=== PATIENT | male | born 1955 | race Caucasian/White ===

== ENCOUNTER → 2020-07-25 | Outpatient (CLI) | payer BC | END | disposition home or self-care (01) | LOC: RAH 08:48 | PROVIDERS: ATTEND Internal Medicine | DX: R06.02 Shortness of breath (principal) | CPT/HCPCS: 93306; 93356 ==

== ENCOUNTER 2020-09-12 07:54 | Day surgery (SDC) | payer BC ==
[2020-09-10 09:42] LABS: BASOPHILS % (AUTO) 0.3 % (0.0-5.0); EOSINOPHILS % (AUTO) 4.4 % (0.0-8.0); HEMATOCRIT 44.9 % (42-54); MEAN CORPUSCULAR HEMOGLOBIN 31.3 pg (27.0-33.0); MEAN CORPUSCULAR HGB CONC 33.9 g/dL (32.0-36.0); MEAN CORPUSCULAR VOLUME 92.6 fL (79-99); MONOCYTES % (AUTO) 10.3 % (3.0-13.0); NEUTROPHILS % (AUTO) 54.1 % (40.0-77.0); PLATELET COUNT (AUTO) 330 K/uL (130-400); RED BLOOD CELL COUNT(AUTO) 4.85 MIL/uL (4.50-6.20); RED CELL DISTRIBUTION WIDTH 13.4 % (11.0-15.5); WHITE BLOOD COUNT (AUTO) 9.7 K/uL (4.8-10.8)
[2020-09-10 09:45] LABS: APPEARANCE,URINE Clear (CLEAR); BILIRUBIN,URINE Negative (NEGATIVE); COLOR,URINE Yellow (YELLOW); GLUCOSE, URINE (UA) Negative (NEGATIVE); KETONES,URINE Negative (NEGATIVE); LEUKOCYTE ESTERASE ,URINE Negative (NEGATIVE); NITRATE,URINE Negative (NEGATIVE); OCCULT BLOOD,URINE Negative (NEGATIVE); PROTEIN,URINE Negative (NEGATIVE); UROBILINOGEN,URINE 0.2 mg/dL (0.2-1.0)
[2020-09-10 09:53] LABS: CREATININE 1.2 mg/dL (0.5-1.5); INR 0.88 (0.85-1.15); PROTHROMBIN TIME 9.5 SEC (9.6-11.6)
[2020-09-10 09:54] LABS: PARTIAL THROMBOPLASTIN TIME 30.2 SEC (26.3-35.5)
[2020-09-11 15:44] VITALS: BP 121/85
[2020-09-12] VITALS (10 sets, daily range): BP systolic 101–140; BP diastolic 59–83
[~2020-09-12] VITALS: Ht 177.8 cm; Wt 137.3 kg
[2020-09-12] MEDS ORDERED: SODIUM CHLORIDE 0.9% 1000ML 1,000 ML IV ONE (08:47)
[2020-09-12] MEDS ORDERED: TORS10TA18 PO (08:48)
[2020-09-12] MEDS ORDERED: LOSA100T58 PO (08:48)
[2020-09-12] MEDS ORDERED: TEST100V5 IM (08:48)
[2020-09-12] MEDS ORDERED: PANT40TA54 PO (08:48)
[2020-09-12] MEDS ORDERED: MONT10TA96 PO (08:48)
[2020-09-12] MEDS ORDERED: METO-408 PO (08:48)
--- NOTE | 2020-09-12 08:55 | NUR ---
report called dr esquivel and informed him pt has a break out of genital herpes to suprapubic area. md will come and assess
[2020-09-12] MEDS ORDERED: DIAZEPAM 5 MG TABLET ONE (09:23)
[2020-09-12] MEDS ORDERED: DIAZEPAM 5 MG TABLET PO SCH (09:45)
[2020-09-12] MEDS ORDERED: ASPIRIN 81MG TAB.CHEW PO SCH (09:45)
[2020-09-12] MEDS ORDERED: VALACYCLOVIR HCL 500 MG TABLET PO SCH (09:45)
--- NOTE | 2020-09-12 10:04 | NUR ---
cath pt taken [facility] via stretcher by jessica ryan. pt in no distress
[2020-09-12] MEDS ORDERED: SODIUM BICARB 50MEQ 50ML VIAL 50 ML ONE (10:08)
[2020-09-12] MEDS ORDERED: MIDAZOLAM HCL 1 MG/ML 2ML VIAL ONE (10:08)
[2020-09-12] MEDS ORDERED: HEPARIN SODIUM 1000UNIT/ML 10ML VIAL ONE (10:08)
[2020-09-12] MEDS ORDERED: NITROGLYCERIN 2 MG/VIAL VIAL IV ONE (10:08)
[2020-09-12] MEDS ORDERED: IOHEXOL 350 MG/ML 100ML INFUS..BTL IV ONE (10:08)
[2020-09-12] MEDS ORDERED: LIDOCAINE HCL 2% 20ML ONE (10:08)
[2020-09-12] MEDS ORDERED: MEPERIDINE-PF 25 MG/ML SYG ONE (10:08)
[2020-09-12] MEDS ORDERED: IOHEXOL-350 50ML VIAL IV ONE (10:08)
[2020-09-12] MEDS ORDERED: SODIUM CHLORIDE 0.9% 1000ML 1,000 ML IV SCH (11:15)
--- NOTE | 2020-09-12 11:25 | NUR ---
post cath received pt and report from candis ryan. pt in supine position in no distress. pt connected to case monitor. will continue to monitor pt
--- NOTE | 2020-09-12 11:35 | NUR ---
report called dr esquivel and informed pt c/o lower back pain and requesting tylenol es. received new orders.
[2020-09-12] MEDS ORDERED: ACETAMINOPHEN EXTRA STRENGTH 500 MG TABLET ONE (11:36)
[2020-09-12] MEDS ORDERED: ACETAMINOPHEN EXTRA STRENGTH 500 MG TABLET PO SCH (13:00)
[2020-09-12] MEDS ORDERED: ACETAMINOPHEN EXTRA STRENGTH 500 MG TABLET PO PRN (13:00)
--- NOTE | 2020-09-12 13:45 | NUR ---
DISCHARGE INSTRUCTIONS D/C INSTRUCTIONS GIVEN TO EV MONTERO. SHE VOICED UNDERSTANDING
== END 2020-09-12 14:55 | disposition home or self-care (01) ==
LOC: DAH 07:54
PROVIDERS: ATTEND Internal Medicine Cardiovascular Disease
DX: I25.10 Atherosclerotic heart disease of native coronary artery without angina pectoris (principal); I11.0 Hypertensive heart disease with heart failure; I50.9 Heart failure, unspecified; Z96.642 Presence of left artificial hip joint; Z88.0 Allergy status to penicillin; Z79.01 Long term (current) use of anticoagulants; Z79.899 Other long term (current) drug therapy; Z98.890 Other specified postprocedural states
CPT/HCPCS: 36415; 71045; 80048; 81003; 85025; 85610; 85730; 93005; 93458; 96360; 96361; A4215; A4216; A4221; A4222; A4223 ×3; A4606; A4663; C1760; C1894; J1644; J2175; J2250; J3490 ×3; J7030; Q9965; Q9967 ×2; 99156; 99157

== ENCOUNTER → 2020-11-26 | Outpatient (CLI) | payer BC ==
[~2020-11-26] MED LIST: ALBUTEROL SULFATE 0.083% 2.5 MG/3 ML INH IH ONE; LOSA100T58 PO; METO-408 PO; MONT10TA32 PO; PANT40TA54 PO; TEST100V5 IM; TORS10TA18 PO
== END | disposition home or self-care (01) ==
LOC: RESP 12:57
PROVIDERS: ATTEND Internal Medicine Cardiovascular Disease
DX: J98.8 Other specified respiratory disorders (principal)
CPT/HCPCS: 93970; 94060; 94727; 94729

== ENCOUNTER → 2020-12-15 | Outpatient (CLI) | payer BC ==
[~2020-12-15] MED LIST changes: -ALBUTEROL SULFATE 0.083% 2.5 MG/3 ML INH IH ONE; +IOHEXOL 350 MG/ML 100ML INFUS..BTL IV ONE
== END | disposition home or self-care (01) ==
LOC: RAH 07:34
PROVIDERS: ATTEND Internal Medicine Cardiovascular Disease
DX: I26.99 Other pulmonary embolism without acute cor pulmonale (principal); R06.02 Shortness of breath
CPT/HCPCS: 71275; Q9967

== ENCOUNTER → 2021-02-13 | Outpatient (CLI) | payer BC ==
[~2021-02-13] MED LIST changes: -IOHEXOL 350 MG/ML 100ML INFUS..BTL IV ONE
== END | disposition home or self-care (01) ==
LOC: RAH 15:17
PROVIDERS: ATTEND Internal Medicine Pulmonary Disease
DX: R94.2 Abnormal results of pulmonary function studies (principal); R22.2 Localized swelling, mass and lump, trunk; K76.0 Fatty (change of) liver, not elsewhere classified; M40.294 Other kyphosis, thoracic region
CPT/HCPCS: 71250

== ENCOUNTER → 2025-01-24 | Outpatient (CLI) | payer OTHER ==
[~2025-01-24] MED LIST changes: -LOSA100T58 PO; +LOSA100T59 PO; +MONT-39 PO; -MONT10TA32 PO; +TEST100V11 IM; -TEST100V5 IM
--- NOTE | 2025-01-24 16:17 | HMCIMG ---
KNEE/PATELLA 1-2VWS RT HISTORY: Right knee pain COMPARISON: None TECHNIQUE: 2 images of the right knee were obtained. FINDINGS: Calcification is noted at the insertion site of the quadriceps tendon consistent with discopathy. There is no acute displaced fracture or dislocation. Degenerative changes are seen. IMPRESSION: 1. Findings as described above.
== END | disposition home or self-care (01) ==
LOC: RAH 11:55
PROVIDERS: ATTEND Internal Medicine
DX: M17.11 Unilateral primary osteoarthritis, right knee (principal); M65.861 Other synovitis and tenosynovitis, right lower leg; M25.561 Pain in right knee
CPT/HCPCS: 73560

== ENCOUNTER → 2025-04-08 | Outpatient (CLI) | payer OTHER ==
--- NOTE | 2025-04-09 07:47 | HMCIMG ---
EXAM: MR Right Knee without Intravenous Contrast. CLINICAL HISTORY: Unspecified meniscus injury. TECHNIQUE: Magnetic resonance images of the right knee in multiple planes. CONTRAST: None. COMPARISON: radiograph dated 01/24/25. FINDINGS: Menisci: Horizontal tear in the body, anterior and posterior horns of the lateral meniscus. Complex tear in the body of the medial meniscus. Mild medial extrusion of the medial meniscus. Cruciate Ligaments: The anterior and posterior cruciate ligaments are intact. Collateral Ligaments: The medial collateral ligament and the lateral collateral ligament complex are intact. Patellar Retinaculum: The medial and lateral patellar retinaculum are unremarkable. Patellar/Quadriceps Tendon: The patellar tendon and the quadriceps tendon are unremarkable. Bone Marrow Signal: No acute fracture or AVN. Cartilage/Articular Surfaces: Small, cartilage defect noted in the lateral trochlea. Severe thinning of the weightbearing medial femoral condyle cartilage and mild thinning of the weightbearing lateral femoral condyle cartilage. Moderate tricompartmental degenerative changes are evident by reduction of the joint space, cartilage thinning and marginal osteophytes. Mild joint effusion. Darden???s cyst measuring approximately 5 x 3 x 2 cm noted. Extra-articular Tendons: The medial and lateral heads of the gastrocnemius muscle, semimembranosus, semitendinosus, and pes anserinus tendons are unremarkable. IMPRESSION: Redemonstrated moderate tricompartmental degenerative changes. Horizontal tear in the body, anterior and posterior horns of the lateral meniscus. Complex tear in the body of the medial meniscus. Mild medial extrusion of the medial meniscus. Small, cartilage defect in the lateral trochlea. Severe thinning of the weightbearing medial femoral condyle cartilage and mild thinning of the weightbearing lateral femoral condyle cartilage. Mild joint effusion. Darden???s cyst measuring approximately 5 x 3 x 2 cm. /[place]
== END | disposition home or self-care (01) ==
LOC: RAH 07:28
PROVIDERS: ATTEND Family Medicine Sports Medicine
DX: S83.231A Complex tear of medial meniscus, current injury, right knee, initial encounter (principal); S83.281A Other tear of lateral meniscus, current injury, right knee, initial encounter; M17.11 Unilateral primary osteoarthritis, right knee; M71.21 Synovial cyst of popliteal space [Baker], right knee; M25.461 Effusion, right knee; M25.761 Osteophyte, right knee; M25.561 Pain in right knee; X58.XXXA Exposure to other specified factors, initial encounter; Y93.89 Activity, other specified; Y92.89 Other specified places as the place of occurrence of the external cause; Y99.8 Other external cause status
CPT/HCPCS: 73721

== ENCOUNTER 2025-05-19 15:56 | Emergency (ER) | payer OTHER ==
[~2025-05-19] VITALS: Ht 180.3 cm; Wt 122.5 kg
[2025-05-19 17:03] LABS: COVID19 (SARS ANTIGEN RAPID) PRESUMPTIVE NEGATIVE (NEGATIVE); INFLUENZA TYPE A Negative For Type A (NEGATIVE); INFLUENZA TYPE B Negative For Type B (NEGATIVE)
[2025-05-19] MEDS ORDERED: AZIT250T9 PO (17:36)
[2025-05-19] MEDS ORDERED: BROM118S48 PO (17:36)
[2025-05-19] MEDS ORDERED: PRED20TA3 PO (17:36)
--- NOTE | 2025-05-19 17:36 | ERN ---
ED Note History of Present Illness Stated Complaint: CONGESTION Chief Complaint: Congestion Time Seen by MD: 16:03 Dictation: 70-YEAR-OLD MALE PRESENTS TO ER COMPLAINTS OF COUGH CONGESTION TIMES 1 DAY. DENIES SHORTNESS OF BREATH OR CHEST PAIN Allergies: Coded Allergies: Penicillins (Verified Allergy, Unknown, 09/12/20) Home Meds Active Scripts D-Methorphan Hb/P-Epd HCl/Bpm (Bromfed Dm Cough Syrup) 2 Mg-30 Mg-10 Mg/5 Ml Syrup, 10 ML PO Q8H for COUGH AND CONGESTION, #300 ML Prov:MILO AKBAR NP 05/19/25 Azithromycin (Azithromycin) 250 Mg Tablet, 1 TAB PO AD for 5 Days, #6 TAB 0 Refills 2 the first day followed by 1 for days 2-5 Prov:MILO AKBAR NP 05/19/25 Prednisone (Prednisone) 20 Mg Tablet, 2 TAB PO DAILY for 5 Days, #10 TAB 0 Refills TAKE 1 TAB BY MOUTH THREE TIMES PER DAY X3 DAYS, THEN TAKE 1 TAB BY MOUTH TWICE A DAY X2 DAYS, THEN TAKE 1 TAB BY MOUTH ONCE A DAY X1 DAY. Prov:MILO AKBAR NP 05/19/25 Reported Medications Metoprolol Succinate (Metoprolol Succinate) 25 Mg Tab.er.24h, 25 MG PO AM, TAB 09/12/20 Losartan Potassium (Losartan Potassium) 100 Mg Tablet, 100 MG PO AM, TAB 09/12/20 Testosterone Cypionate (Testosterone Cypionate) 100 Mg/1 Ml Vial, 100 MG IM [id number], VIAL 09/12/20 Montelukast Sodium (Montelukast Sodium) 10 Mg Tablet, 10 MG PO AM, TAB 09/12/20 Pantoprazole Sodium (Pantoprazole Sodium) 40 Mg Tablet.dr, 40 MG PO AM, TAB 09/12/20 Torsemide (Torsemide) 10 Mg Tablet, 10 MG PO AM, TAB 09/12/20 Past Medical History Past Medical History: No Pertinent History Surgical History: Other Surgical History Other: LEFT HIP REPLACEMENT, HERNIA REPAIR Review of System Dictation CONSTITUTIONAL: NEGATIVE FOR FEVER,CHILLS, AND WEIGHT LOSS EYES: NEGATIVE FOR INJURY, PAIN,REDNESS, AND DISCHARGE ENT: NEGATIVE FOR INJURY,PAIN OR SWELLING. POSITIVE NASAL CONGESTION CARDIOVASCULAR: NEGATIVE FOR CHEST PAIN, PALPITATIONS, AND EDEMA RESPIRATORY: NEGATIVE FOR SHORTNESS OF BREATH, WHEEZING, AND PLEURITIC CHEST PAIN. POSITIVE COUGH ABDOMEN/GI: NEGATIVE FOR ABDOMINAL PAIN, NAUSEA, VOMITING, DIARRHEA, AND CONSTIPATION BACK: NEGATIVE FOR INJURY AND PAIN : NEGATIVE FOR INJURY, BLEEDING AND DISCHARGE MS/EXTREMITY: NEGATIVE FOR INJURY AND DEFORMITY SKIN: NEGATIVE FOR RASH, AND DISCOLORATION NEURO: NEGATIVE FOR HEADACHE, WEAKNESS, NUMBNESS, TINGLING, AND SEIZURE PSYCH: NEGATIVE FOR SUICIDE IDEATION, HOMICIDAL IDEATION, AND HALLUCINATIONS ALLERGY/IMMUNOLOGY: NEGATIVE FOR HIVES, RASH, AND ALLERGIES ALL SYSTEMS NEGATIVE, EXCEPT NOTED ABOVE. Initial Vital Sign VS Vital Signs Date Time Temp Pulse Resp B/P (MAP) Pulse Ox O2 Delivery O2 Flow Rate FiO2 05/19/25 15:57 97.5 83 18 127/80 97 Room Air 05/19/25 16:11 0 21 Physical Exam Dictation GENERAL: AWAKE, ALERT, NAD HEAD/FACE: NORMOCEPHALIC, ATRAUMATIC EYES: PERRL, EOMI, VISION AT BASELINE ENT: ORAL CAVITY CLEAR, TMS CLEAR, NO SIGNS OF INFECTION NECK: TRACHEA MIDLINE, SUPPLE, NO NUCHAL RIGIDITY CARDIOVASCULAR: RRR, NORMAL S1/S2, NO MRGS, NO JVD RESPIRATORY: CTAB, NO RESPIRATORY DISTRESS, NO RALES OR WHEEZES ABDOMEN: SOFT, NON-TENDER, NON-DISTENDED, NORMAL BOWEL SOUNDS, NO GUARDING OR REBOUND. SKIN: WARM, DRY, NORMAL TURGOR, NO RASH MS/EXTREMITY: PULSES EQUAL, NO CYANOSIS, NEUROVASCULAR INTACT, FROM NEURO: COAX4, GCS 15, STRENGTH 5/5, CN 2-12 INTACT, NORMAL CEREBELLAR EXAM, NORMAL GAIT, PSYCH: NORMAL BEHAVIOR, MOOD, AND AFFECT NORMAL Results (Laboratory/Radiology) Laboratory/Radiology Laboratory Tests Test 05/19/25 16:35 Influenza Type A Antigen Negative For Type A Influenza Type B Antigen Negative For Type B SARS-CoV-2 Antigen (Rapid) PRESUMPTIVE NEGATIVE X-RAY Comment: EXAM: CR Chest, 2 View. CLINICAL HISTORY: R/O PNEUMONIA COMPARISON: 11/11/19 9:24 EST DX - CHEST 1VW FINDINGS: LUNGS: There is no mass, infiltrate, or acute pulmonary abnormality. PLEURAL SPACES: No pleural effusion or pneumothorax. MEDIASTINUM: Cardiac size and mediastinal contours within normal limits. BONES: No aggressive appearing osseous lesion seen. IMPRESSION: No acute cardiopulmonary pathology is evident. Course ED Course Orders Procedure Category Date Status Time Influenza Type A & B, LAB 05/19/25 Complete Rapid 16:33 Covid19 (Sars Antigen LAB 05/19/25 Complete Rapid) 16:33 Chest 2vws RAD 05/19/25 Resulted 16:33 Azithromycin PHA 05/19/25 In Process (Zithromax) 18:00 Prednisone 20mg Tab PHA 05/19/25 In Process (Deltasone/Orasone 2 18:00 Current Medications Medications (Trade) Dose Ordered Sig/Debbie Route PRN Reason Start Time Stop Time Status Last Admin Dose Admin Azithromycin (Zithromax) 500 mg ONCE ONCE PO 05/19/25 18:00 05/19/25 18:01 Prednisone (deltaSONE/ oraSONE 20MG TAB) 20 mg ONCE ONCE PO 05/19/25 18:00 05/19/25 18:01 Vital Signs Date Time Temp Pulse Resp B/P (MAP) Pulse Ox O2 Delivery O2 Flow Rate FiO2 05/19/25 17:45 97.5 87 18 124/74 97 Room Air* 0 21 05/19/25 16:11 97.5 93 18 127/80 97 Room Air* 0 21 05/19/25 15:57 97.5 83 18 127/80 97 Room Air Medical Decision Making MDM MDM: DIFFERENTIAL DIAGNOSIS: BRONCHITIS, PNEUMONIA, BRONCHIOLITIS, COVID, INFLUENZA RATIONALE: TESTS CONSIDERED AND ORDERED SECONDARY TO SHARED DECISION MAKING INCLUDE: LABS, ECG AND RADIOLOGY PREVIOUS OUTSIDE RECORDS REVIEWED: OLD ER VISITS. RISK OF COMPLICATION AND/OR MORBIDITY OR MORTALITY OF PATIENT MANAGEMENT: NONE MEDICATIONS-PER MEDICATION RECONCILIATION NEED FOR HOSPITALIZATION: PATIENT DOES NOT MEET CRITERIA FOR HOSPITALIZATION. NEED FOR EMERGENCY MAJOR/MINOR SURGERY: NO THERE ARE NO SOCIAL CONCERNS WITH THIS PATIENT. PRESCRIPTION DRUG MANAGEMENT PRESCRIPTIONS WILL INCLUDE SYMPTOMATIC CARE PATIENT'S PRIOR EXTERNAL MEDICAL RECORDS FROM OTHER ER VISITS WERE REVIEWED BY ME INDICATED. PRIOR TESTING AND RESULTS FROM PREVIOUS VISITS WERE REVIEWED. PRIOR TESTS WERE TAKEN INTO ACCOUNT WITH MEDICAL DECISION MAKING AND RESOURCE UTILIZATION, INDEPENDENT HISTORIAN/HISTORIANS WERE USED TO OBTAIN COMPLETE MEDICAL HISTORY. I INDEPENDENTLY INTERPRETED THE TEST THAT WERE PERFORMED, RESULTS WERE REVIEWED BY ME AND CONSIDERED FINDINGS ON RADIOLOGY IF ORDERED. PATIENT REQUESTING 1ST DOSE OF MEDICATIONS SINCE PHARMACIES ARE CLOSED TODAY. DUE TO PATIENT AGE ADVISED WE WILL START ON A Z-NILES. AND SOME MEDICATION TO HELP WITH COUGH AND CONGESTION. PATIENT VSS, NAD, NONTOXIC, STABLE FOR DISCHARGE. PT GIVEN DISCHARGE INSTRUCTIONS IN LAYMAN TERMS AND UNDERSTOOD, ALL QUESTIONS ANSWERED. PT WILL FOLLOW UP WITH PCP AND RETURN TO THE ER IF WORSE. DX & DISP Disposition: Discharge Departure Impression: Primary Impression: Bronchiolitis Additional Impressions: Upper respiratory infection, Cough Condition: Stable Scripts D-Methorphan Hb/P-Epd HCl/Bpm (Bromfed Dm Cough Syrup) 2 Mg-30 Mg-10 Mg/5 Ml Syrup 10 ML PO Q8H for COUGH AND CONGESTION, #300 ML Prov: MILO AKBAR NP 05/19/25 Azithromycin (Azithromycin) 250 Mg Tablet 1 TAB PO AD for 5 Days, #6 TAB 0 Refills 2 the first day followed by 1 for days 2-5 Prov: MILO AKBAR NP 05/19/25 Prednisone (Prednisone) 20 Mg Tablet 2 TAB PO DAILY for 5 Days, #10 TAB 0 Refills TAKE 1 TAB BY MOUTH THREE TIMES PER DAY X3 DAYS, THEN TAKE 1 TAB BY MOUTH TWICE A DAY X2 DAYS, THEN TAKE 1 TAB BY MOUTH ONCE A DAY X1 DAY. Prov: MILO AKBAR NP 05/19/25 Referrals: CAS SAMANO MD (PCP) MILO AKBAR NP May 19, 2025 17:36
[2025-05-19 17:45] VITALS: BP 124/74; PULSE 87; RESP 18; TEMP 97.5; O2SAT 97
--- NOTE | 2025-05-19 17:55 | HMCIMG ---
EXAM: CR Chest, 2 View. CLINICAL HISTORY: R/O PNEUMONIA COMPARISON: 11/11/19 9:24 EST DX - CHEST 1VW FINDINGS: LUNGS: There is no mass, infiltrate, or acute pulmonary abnormality. PLEURAL SPACES: No pleural effusion or pneumothorax. MEDIASTINUM: Cardiac size and mediastinal contours within normal limits. BONES: No aggressive appearing osseous lesion seen. IMPRESSION: No acute cardiopulmonary pathology is evident. /[place]
[2025-05-19] MEDS: AZITHROMYCIN 250 MG TABLET PO ONE (18:04)
== END 2025-05-19 17:46 | disposition home or self-care (01) ==
LOC: EDH 15:56
DX: J21.9 Acute bronchiolitis, unspecified (principal); J06.9 Acute upper respiratory infection, unspecified; Z20.822 Contact with and (suspected) exposure to COVID-19; Z88.0 Allergy status to penicillin; Z79.52 Long term (current) use of systemic steroids; Z98.890 Other specified postprocedural states; Z96.652 Presence of left artificial knee joint
CPT/HCPCS: 71046; 87426; 87804; 99284

== ENCOUNTER 2025-07-28 12:34 | Emergency (ER) | payer OTHER ==
[~2025-07-28] VITALS: Ht 180.3 cm; Wt 133.8 kg
[~2025-07-28 12:34] MED LIST changes: +AZIT250T9 PO; +BROM118S48 PO; +PRED20TA3 PO
[2025-07-28 13:02] LABS: IMMATURE GRANULOCYTE ABSOLUTE 0.14 K/uL (0-1); NUCLEATED RED BLOOD CELLS 0.0 % (0.0-0.19); PLATELET COUNT (AUTO) 249 K/uL (130-400); RED BLOOD CELL COUNT(AUTO) 4.28 MIL/uL (4.50-6.20); RED CELL DISTRIBUTION WIDTH 13.0 % (11.0-15.5); WHITE BLOOD COUNT (AUTO) 9.1 K/uL (4.8-10.8)
[2025-07-28 13:06] LABS: APPEARANCE,URINE CLEAR (CLEAR); GLUCOSE, URINE (UA) NEGATIVE (NEGATIVE); LEUKOCYTE ESTERASE ,URINE NEGATIVE Leu/uL (NEGATIVE); NITRATE,URINE NEGATIVE (NEGATIVE); OCCULT BLOOD,URINE NEGATIVE (NEGATIVE)
[2025-07-28 13:09] LABS: ADD UA MICROSCOPIC NO
[2025-07-28 13:13] LABS: INR 0.97 (0.85-1.15)
[2025-07-28 13:36] LABS: CREATININE 1.1 mg/dL (0.5-1.3); GLOMERULAR FILTR. RATE CALC 73.0 mL/min (>90); GLUCOSE,RANDOM 103.0 mg/dL (70-105); SODIUM SERUM 141.0 mmol/L (136-145); UREA NITROGEN, BLOOD 24.0 mg/dL (7-18)
[2025-07-28 13:41] LABS: CREATINE KINASE, TOTAL 95.0 U/L (21-232)
[2025-07-28] MEDS: MAG/ALUM/SIMETH 30 ML UDCUP PO ONE (13:52)
[2025-07-28] MEDS: LIDOCAINE HCL 2% VISCOUS 15 ML UDCUP PO ONE (13:52)
--- NOTE | 2025-07-28 14:05 | HMCIMG ---
EXAM: CR Chest, 2 View. CLINICAL HISTORY: CP COMPARISON: None provided. FINDINGS: LUNGS: The lungs show no infiltrate or other acute finding. PLEURAL SPACES: No pleural effusion or pneumothorax. MEDIASTINUM: The cardiomediastinal silhouette is within normal limits. BONES: No aggressive appearing osseous lesion seen. IMPRESSION: No acute cardiopulmonary pathology is evident. /[place]
--- NOTE | 2025-07-28 14:38 | EKG ---
[facility] Test Date: 2025-07-28 Test Time: 12:32:53 Pat Name: ERIK PRESCOTT Department: [facility] Room: Gender: M Surgical Territory Manager: [id number] : [id number] Requested By: FAUSTO GRIFFITH Order Number: [id number] Reading MD: Wily Garcia Measurements Intervals [place] Rate: 83 P: -2 ID: [id number] QRS: -10 QRSD: 91 T: 55 QT: 352 QTc: 414 Interpretive Statements Sinus rhythm Compared to ECG 09/10/2020 09:10:04 Ventricular premature complex(es) no longer present Electronically Signed On 07-28-2025 16:33:37 [employer] by Wily Garcia Please click the below link to view image of tracing.
--- NOTE | 2025-07-28 14:40 | ERN ---
General Chief Complaint: Chest Pain Stated Complaint: CHEST PAIN Time Seen by MD: 12:41 Source: patient History of Present Illness Initial Comments PATIENT IS A 70-YEAR-OLD MALE COMING IN COMPLAINING OF CHEST PRESSURE 30 MINUTES AFTER EATING. HE STATES THAT HE HAS BEEN BELCHING. CAME IN DUE TO THE PRESSURE NOT PAIN. Allergies: Coded Allergies: Penicillins (Verified Allergy, Unknown, 09/12/20) Home Meds Active Scripts D-Methorphan Hb/P-Epd HCl/Bpm (Bromfed Dm Cough Syrup) 2 Mg-30 Mg-10 Mg/5 Ml Syrup, 10 ML PO Q8H for COUGH AND CONGESTION, #300 ML Prov:MILO AKBAR [facility] 05/19/25 Azithromycin (Azithromycin) 250 Mg Tablet, 1 TAB PO AD for 5 Days, #6 TAB 0 Refills 2 the first day followed by 1 for days 2-5 Prov:MILO AKBAR [facility] 05/19/25 Prednisone (Prednisone) 20 Mg Tablet, 2 TAB PO DAILY for 5 Days, #10 TAB 0 Refills TAKE 1 TAB BY MOUTH THREE TIMES PER DAY X3 DAYS, THEN TAKE 1 TAB BY MOUTH TWICE A DAY X2 DAYS, THEN TAKE 1 TAB BY MOUTH ONCE A DAY X1 DAY. Prov:MILO AKBAR [facility] 05/19/25 Reported Medications Metoprolol Succinate (Metoprolol Succinate) 25 Mg Tab.er.24h, 25 MG PO AM, TAB 09/12/20 Losartan Potassium (Losartan Potassium) 100 Mg Tablet, 100 MG PO AM, TAB 09/12/20 Testosterone Cypionate (Testosterone Cypionate) 100 Mg/1 Ml Vial, 100 MG IM [id number], VIAL 09/12/20 Montelukast Sodium (Montelukast Sodium) 10 Mg Tablet, 10 MG PO AM, TAB 09/12/20 Pantoprazole Sodium (Pantoprazole Sodium) 40 Mg Tablet.dr, 40 MG PO AM, TAB 09/12/20 Torsemide (Torsemide) 10 Mg Tablet, 10 MG PO AM, TAB 09/12/20 Past Medical History Past Medical History: No Pertinent History Past Surgical History: None Surgical History Other: HIP REPLACEMENT LT, INGUINAL HERNIA REPAIR ROS Dictation CONSTITUTIONAL: NO CHILLS, NO FEVER, NO WEAKNESS, NO DIAPHORESIS, NO MALAISE. HEAD/FACE: NO SIGNS OF TRAUMA. EENT: NO EYE PAIN, NO BLURRED VISION, NO TEARING, NO DOUBLE VISION, NO EAR PAIN, NO EAR DISCHARGE, NO NOSE PAIN, NO NASAL CONGESTION, NO THROAT PAIN, NO THROAT SWELLING, NO MOUTH PAIN. RESPIRATORY: NO COUGH, NO ORTHOPNEA, NO SOB, NO STRIDOR, NO WHEEZING. CARDIOVASCULAR: CHEST PAIN, NO EDEMA, NO PALPITATIONS, NO SYNCOPE. GASTROINTESTINAL/ABDOMINAL: NO ABDOMINAL PAIN, NO CONSTIPATION, NO DIARRHEA, NO NAUSEA, NO VOMITING. GENITOURINARY: NO ABNORMAL DISCHARGE, NO DYSURIA, NO FREQUENT URINATION, NO HEMATURIA. NO COMPLAINTS OF PAIN IN THE GENITALS. MUSCULOSKELETAL: NO BACK PAIN, NO GOUT, NO JOINT PAIN, NO JOINT SWELLING, NO MUSCLE PAIN, NO MUSCLE STIFFNESS, NO NECK PAIN. INTEGUMENTARY: NO CHANGE IN COLOR, NO CHANGE IN HAIR/NAILS, NO DRYNESS, NO LESION, NO LUMPS, NO RASH. NEUROLOGICAL/PSYCH: NO ANXIETY, NOT DEPRESSED, NO EMOTIONAL PROBLEM, NO HEADACHE, NO NUMBNESS, NO PRE-EXISTING DEFICIT, NO HISTORY OF SEIZURES, NO TREMORS, NO WEAKNESS. HEMATOLOGIC/LYMPHATIC: NOT ANEMIC, NO HISTORY OF BLOOD CLOTS, NO APPARENT BLEEDING, NO BRUISING, GLANDS NOT SWOLLEN. ALL SYSTEMS NEGATIVE, EXCEPT NOTED. Physical Exam Physical Exam Dictation VITAL SIGNS: REVIEWED. GENERAL APPEARANCE: ALERT, ORIENTED X3, NO ACUTE DISTRESS, OBESE. HEAD AND FACE: NON-TRAUMATIC. EYES: PERRL, PINK CONJUNCTIVAS, EYELID NO TRAUMA, ANTERIOR CHAMBER CLEAR. EARS: PINNAS INTACT AND NO SIGNS OF TRAUMA OR ERYTHEMA. EAR CANALS CLEAR AND NO DISCHARGE. TMS NO ERYTHEMA. NOSE: NO DISCHARGE, NO BLEEDING. OROPHARYNX: MOUTH NORMAL, TEETH NO CARIES, TONGUE PINK. PHARYNX CLEAR, NO ERYTHEMA. TONSILS NO EXUDATES, NO ABSCESSES NOTED. MUCOUS MEMBRANE MOIST. NECK: SUPPLE, NON-TENDER, NO THYROMEGALY, NO MASSES, NO JVD, NO BRUITS. BREAST: DEFERRED. CHEST: NO TENDERNESS, NO CREPITUS, NO PARADOXICAL MOVEMENT, NO RETRACTIONS. LUNGS: CLEAR, WELL-VENTILATED, SYMMETRIC, NO RALES, NO WHEEZING, NO RHONCHI, NO STRIDOR, GOOD BREATH SOUNDS BILATERALLY. HEART: REGULAR RATE, REGULAR RHYTHM, NO MURMUR, NO GALLOPS. VASCULAR: NO PERIPHERAL EDEMA. ABDOMEN: SOFT, POSITIVE BOWEL SOUNDS, NONDISTENDED, NO GUARDING, NONTENDER, NO REBOUND, NO MASSES NO HEPATOMEGALY, NO SPLENOMEGALY, NO WRIGTH'S SIGN, NO HERNIAS. RECTAL: DEFERRED. GENITAL: DEFERRED. NEUROLOGICAL: NORMAL SPEECH, GROSS MOTOR FUNCTION INTACT, GROSS SENSORY FUNCTION INTACT. MUSCULOSKELETAL: NECK NONTENDER, FULL RANGE OF MOTION, BACK NONTENDER, FULL RANGE OF MOTION. EXTREMITIES: NONTENDER, FULL RANGE OF MOTION. SKIN: COLOR PINK, DRY, NO TURGOR, NO RASH, NO LACERATIONS, NO ABRASIONS, NO CON TUSIONS. LYMPHATICS: DEFERRED. Results Laboratory and Microbiology Lab and Micro Result Laboratory Tests Test 07/28/25 12:50 07/28/25 12:53 07/28/25 13:57 Urine Color STRAW (YELLOW) Urine Appearance CLEAR (CLEAR) Urine pH 5.0 (5.0-8.0) Urine Specific [place] 1.004 (1.001-1.031) Urine Protein NEGATIVE mg/dL (NEGATIVE) Urine Glucose (UA) NEGATIVE mg/dL (NEGATIVE) Urine Ketones NEGATIVE mg/dL (NEGATIVE) Urine Occult Blood NEGATIVE (NEGATIVE) Urine Nitrate NEGATIVE (NEGATIVE) Urine Bilirubin NEGATIVE mg/dL (NEGATIVE) Urine Urobilinogen 0.2 mg/dL (0.2-1.0) Urine Leukocyte Esterase NEGATIVE Frank/uL White Blood Count 9.1 K/uL (4.8-10.8) Red Blood Count 4.28 MIL/uL (4.50-6.20) L Hemoglobin 13.9 g/dL (14.0-18.0) L Hematocrit 41.3 % (42-54) L Mean Corpuscular Volume 96.5 fL (79-99) Mean Corpuscular Hemoglobin 32.5 pg (27.0-33.0) Mean Corpuscular Hemoglobin Concent 33.7 g/dL (32.0-36.0) Red Cell Distribution Width 13.0 % (11.0-15.5) Platelet Count 249 K/uL (130-400) Mean Platelet Volume 10.1 fL (7.5-10.5) Immature Granulocyte % (Auto) 1.5 % (0-1) H Neutrophils (%) (Auto) 60.0 % (40.0-77.0) Lymphocytes (%) (Auto) 25.3 % (21.0-51.0) Monocytes (%) (Auto) 8.1 % (3.0-13.0) Eosinophils (%) (Auto) 4.4 % (0.0-8.0) Basophils (%) (Auto) 0.7 % (0.0-5.0) Neutrophils # (Auto) 5.5 K/uL (1.8-7.7) Lymphocytes # (Auto) 2.3 K/uL (1.0-4.8) Monocytes # (Auto) 0.7 K/uL (0.1-1.0) Eosinophils # (Auto) 0.40 K/uL (0.00-0.70) Basophils # (Auto) 0.06 K/uL (0.00-0.20) Absolute Immature Granulocyte (auto 0.14 K/uL (0-1) Nucleated Red Blood Cells 0.0 % (0.0-0.19) Prothrombin Time 10.3 SEC (9.6-11.6) Prothromb Time International Ratio 0.97 (0.85-1.15) Activated Partial Thromboplast Time 28.4 SEC (26.3-35.5) Sodium Level 141 mmol/L (136-145) Potassium Level 4.0 mmol/L (3.5-5.1) Chloride Level 106 mmol/L (101-111) Carbon Dioxide Level 26 mmol/L (21-32) Blood Urea Nitrogen 24 mg/dL (7-18) H Creatinine 1.1 mg/dL (0.5-1.3) Glomerular Filtration Rate Calc 73 mL/min (>90) Random Glucose 103 mg/dL (70-105) Total Calcium 8.7 mg/dL (8.5-10.1) Magnesium Level 1.90 mg/dL (1.80-2.40) Total Creatine Kinase 95 U/L (21-232) Troponin I High Sensitivity 15 ng/L (4-75) 15 ng/L (4-75) Labs Reviewed?: Yes MDM MDM: DIFFERENTIAL DIAGNOSIS: CHEST PRESSURE, GASTRITIS, GERD, RATIONALE: TESTS CONSIDERED AND ORDERED SECONDARY TO SHARED DECISION MAKING INCLUDE: PREVIOUS OUTSIDE RECORDS REVIEWED: OLD ER VISITS. RISK OF COMPLICATION AND/OR MORBIDITY OR MORTALITY OF PATIENT MANAGEMENT: NONE MEDICATIONS-PER MEDICATION RECONCILIATION NEED FOR HOSPITALIZATION: PATIENT DOES NOT MEET CRITERIA FOR HOSPITALIZATION. NEED FOR EMERGENCY MAJOR/MINOR SURGERY: NO THERE ARE NO SOCIAL CONCERNS WITH THIS PATIENT. PATIENT IS A 70-YEAR-OLD GENTLEMAN COMING IN COMPLAINING OF CHEST PRESSURE AFTER EATING LUNCH. LABORATORY WORKUP WITHIN NORMAL LIMITS. PATIENT RECEIVED A GI COCKTAIL WELL IV PROTONIX STATES THE SYMPTOMS HAVE SUBSIDED. PATIENT WILL BE DISCHARGED IN STABLE CONDITION WITH A DIAGNOSIS OF GERD. I DID ADVISED HIM APPROPRIATE FOLLOW UP WITH PCP FOR LONG-TERM MANAGEMENT I ALSO ADVISED HIM WITH THE CHEST PRESSURE RETURNS TO FOLLOW UP WITH THE NEAREST ER OR WITH PCP SOONER. ED Course Orders Procedure Category Date Status Time Cbc With Differential LAB 07/28/25 Complete 12:41 Prothrombin Time With LAB 07/28/25 Complete INR 12:41 Chest 1vw RAD 07/28/25 Resulted 12:41 12 Lead Ekg Tracing- EKG 07/28/25 Logged Technical 12:41 Magnesium LAB 07/28/25 Complete 12:41 Creatine Kinase, Total LAB 07/28/25 Complete 12:41 Troponin I High LAB 07/28/25 Complete Sensitivity 12:41 Urinalysis Profile LAB 07/28/25 Complete 12:41 Partial LAB 07/28/25 Complete Thromboplastin Time 12:41 Basic Metabolic Panel LAB 07/28/25 Complete 12:41 Pantoprazole 40mg Inj PHA 07/28/25 Complete (Protonix 40mg Inj 13:00 Lidocaine Hcl 2% PHA 07/28/25 Complete Viscous (Lidocaine Hcl 14:00 Mag/Alum/Simeth 30ml PHA 07/28/25 Complete (Maalox Plus 30ml) 14:00 Troponin I High LAB 07/28/25 Complete Sensitivity 13:44 Current Medications Medications (Trade) Dose Ordered Sig/Debbie Route PRN Reason Start Time Stop Time Status Last Admin Dose Admin Al Hydroxide/Mg Hydroxide (MAALox PLUS 30ML) 30 ml ONCE ONCE PO 07/28/25 14:00 07/28/25 14:01 DC 07/28/25 13:52 Lidocaine HCl (Lidocaine HCl 2% Viscous) 10 ml ONCE ONCE PO 07/28/25 14:00 07/28/25 14:01 DC 07/28/25 13:52 Pantoprazole Sodium (PROTonix 40MG INJ) 40 mg ONCE ONCE IVP 07/28/25 13:00 07/28/25 13:01 DC 07/28/25 13:15 Vital Signs Date Time Temp Pulse Resp B/P (MAP) Pulse Ox O2 Delivery O2 Flow Rate FiO2 07/28/25 12:57 98.1 83 19 132/77 99 Room Air* 0 21 07/28/25 12:35 97.7 82 20 132/81 97 Room Air DX & DISP Disposition: Discharge Departure Impression: Primary Impression: GERD (gastroesophageal reflux disease) Condition: Stable Additional Instructions: YOU HAVE BEEN REVIEWED IN THE EMERGENCY DEPARTMENT AT [facility] AFTER PRESENTING WITH CHEST PAIN. AFTER CONSIDERING YOUR HISTORY, YOUR RISK FACTORS, YOUR EKG AND YOUR BLOOD TEST TROPONINS, HAVE BEEN FOUND TO BE AT VERY LOW RISK LESS THAN (1 IN 100) OF HAVING A MAJOR ADVERSE CARDIAC EVENT (LIKE HEART ATTACK) IN THE NEAR FUTURE. IN THE " LOW RISK" GROUP, THE RISKS OF DOING FURTHER TESTS AND TREATMENT THE INPATIENT OUTWEIGHS THE BENEFITS. IN MANY PATIENTS IN THE LOW RISK GROUP FOR THE TEST OF ANY SORT OR UNNECESSARY, HOWEVER HE SHOULD DISCUSS THIS FURTHER WITH HIS GENERAL PRACTITIONER WHO WILL UNDERSTAND THE MEDICAL AND PERSONAL BACKGROUNDS BETTER. BECAUSE WE HAVE NEVER DECLARED YOU" NO RISK" WE WOULD SUGGEST. 1 RETURNING FOR MEDICAL REVIEW IF YOU HAVE FURTHER EPISODES OF CHEST PAIN/ARM PAIN OR OTHER CONCERNING SYMPTOMS LIKE DIZZINESS, COLLAPSE, PALPITATIONS OR SHORTNESS OF BREATH. 2. FOLLOWING UP WITH YOUR LOCAL DOCTOR WHO WILL CONSIDER THE NEED FOR FURTHER TESTING AND WILL ALSO ENSURE THAT ANY MODIFIABLE RISK FACTORS YOU MAY HAVE FOR HEART DISEASE ARE OPTIMALLY MANAGED. PATIENT WILL BE DISCHARGED IN STABLE CONDITION AT THE MOMENT DISCHARGE PATIENT STATES , NO CHEST PAIN Referrals: CAS SAMANO MD (PCP) TERESA SAINZ MD Time of Disposition: 14:39 FAUSTO GRIFFITH MD Jul 28, 2025 14:40
[2025-07-28 14:41] VITALS: BP 130/75; PULSE 78; RESP 19; TEMP 98.1; O2SAT 98
[2025-07-28] MEDS ORDERED: PANT40TA55 PO (14:41)
== END 2025-07-28 14:59 | disposition home or self-care (01) ==
LOC: EDH 12:34
DX: K21.9 Gastro-esophageal reflux disease without esophagitis (principal); Z88.0 Allergy status to penicillin; Z79.52 Long term (current) use of systemic steroids; Z96.642 Presence of left artificial hip joint; Z98.890 Other specified postprocedural states
CPT/HCPCS: 99285; 96374; 71045; 82550; 83735; 84484 ×2; 80048; 85025; 85610; 85730; 81003; 36415; 93005; J2470